=== PATIENT | male | born 1965 | race Caucasian/White ===

== ENCOUNTER 2022-03-27 11:02 | Emergency (ER) | payer OTHER, SELFPAY ==
[2022-03-27] VITALS (11 sets, daily range): BP systolic 130–162; BP diastolic 88–102; PULSE 84–127; RESP 18–20; TEMP 36.4–36.9; O2SAT 97–100
--- NOTE | ~2022-03-27 | CT_ITS ---
EXAMINATION: CT abdomen pelvis wo con DATE: 03/27/2022 12:22 INDICATION: Left flank pain. History of kidney stones. TECHNIQUE: Computed tomography (CT) of the abdomen and pelvis was performed without intravenous contr ast. Automated exposure control and iterative reconstruction technique were employed. Exam dose: 172 .38 mGy-cm total exam DLP. COMPARISON: 03/27/2022 portable AP chest FINDINGS: Calcified right lower lobe pulmonary granulomas. The included lung bases are clear of infil trate or consolidation. Normal heart size. No pericardial or pleural effusion. Approximately 1.5 cm lateral segment left hepatic cyst. The liver is otherwise unremarkable. The gall bladder is present. No gallbladder wall thickening or pericholecystic fluid or fat stranding is noted . No bile duct or pancreatic duct dilatation. No pancreatic mass lesion or calcification. Normal sple jacquie size. Normal morphology of the adrenal glands. Several left renal cysts measuring up to 2.9 x 3.6 cm. Mild nonobstructive right nephrolithiasis including one larger stone measuring up to 4.5 mm. 5.8 mm nonobstructing upper pole left renal calculus. No ureteral calculus or hydroureteronephrosis on either side. Probable approximately 1.5 cm posterolateral left urinary bladder diverticulum. Moderate thickening o f the urinary bladder wall. There is prostate enlargement and calcification. Normal caliber of the abdominal aorta. No intraperitoneal or retroperitoneal or pelvic mass lesion or adenopathy or ascites. Diverticulosis of the colon, most prominent in the sigmoid region. No CT evidence of diverticulitis. No bowel obstruction, bowel wall thickening, pneumatosis or intraperitoneal free air. Normal appendix . The tracts of prior intramedullary nail and compression screw of proximal right femur and an old heal ed right femoral intertrochanteric fracture are noted. There is osteosclerosis of the left inferior pubic ramus. Osteosclerotic metastasis is not excluded. Recommend clinical correlation and perhaps are identified bone scan as clinically appropriate. IMPRESSION: Bilateral nonobstructive nephrolithiasis; no ureteral calculus or hydroureteronephrosis Multiple left renal cysts 1.5 cm left hepatic cyst Prostate enlargement and calcification Probable posterolateral left 1.5 cm urinary bladder diverticulum Diverticulosis of the colon Osteosclerosis of left inferior pubic ramus; prostate cancer osteosclerotic metastasis is not exclude d. Recommend clinical correlation and perhaps radionuclide bone scan as clinically appropriate Reviewed, dictated and finalized at [facility] Reviewed, dictated and finalized at [facility] IMPRESSION: Bilateral nonobstructive nephrolithiasis; no ureteral calculus or hydroureteronephrosis Multiple left renal cysts 1.5 cm left hepatic cyst Prostate enlargement and calcification Probable posterolateral left 1.5 cm urinary bladder diverticulum Diverticulosis of the colon Osteosclerosis of left inferior pubic ramus; prostate cancer osteosclerotic met astasis is not excluded. Recommend clinical correlation and perhaps radionuclid e bone scan as clinically appropriate
--- NOTE | ~2022-03-27 | XR_ITS ---
EXAMINATION: XR chest 1V portable INDICATION: Chest pain TECHNIQUE: Portable AP chest at 1226 hours COMPARISON: None available FINDINGS: There is symmetric scarring of the lung apices. The lungs are free of acute opacities. No p leural effusion or pneumothorax. The cardiomediastinal silhouette is normal. IMPRESSION: 1. No acute cardiopulmonary abnormality. Reviewed, dictated and finalized at [facility] [employer]
--- NOTE | 2022-03-27 11:54 | ECG_ITS ---
Measurements Intervals [place] Rate: 87 P: 84 [place]: 112 QRS: 73 QRSD: 77 T: 78 QT: 332 QTc: 401 Interpretive Statements SINUS RHYTHM WITH SHORT [place] INTERVAL ABNORMAL ECG NO PREVIOUS ECG AVAILABLE FOR COMPARISON Electronically Signed On 03-27-2022 15:10:03 QUALITY CONTROL TECH by Bubba Marmolejo M.D.
[2022-03-27 12:08] LABS: Hematocrit 49.7 % (40.0-54.0); Hemoglobin 17.2 g/dL (14.0-18.0); Mean Corpuscular HGB Conc 34.6 g/dL (32.0-36.0); Mean Corpuscular Hemoglobin 31.3 pg (27.0-31.0); Mean Corpuscular Volume 90.4 fL (78.0-102.0); Mean Platelet Volume 9.3 fl (8.7-11.0); Platelet Count Result 160 K/mm3 (150-420); Red Cell Distribution Width 12.2 % (11.6-14.4); White Blood Count 3.9 K/mm3 (4.8-10.8)
[2022-03-27 12:10] LABS: Appearance Urine Clear (Clear); Bilirubin Urine Negative (Negative); Blood Urine Negative (Negative); Glucose Urine UA Negative (Negative); Ketones Urine Negative (Negative); Leukocyte Esterase Ur Negative (Negative); Nitrate Urine Negative (Negative); Protein Urine Negative (Negative); Specific Grav Ur 1.015 (1.010-1.020); Urobilinogen Urine 0.2 mg/dL (0.2-1.0); pH Urine 6.5 (5.0-8.0)
[2022-03-27 12:26] LABS: Alanine Aminotransferase 34 U/L (16-63); Albumin Level 3.7 g/dL (3.4-5.0); Alkaline Phosphatase 72 U/L (46-116); Anion Gap 8 mmol/L (8-16); Aspartate Amino Transferase 36 U/L (15-37); Bilirubin,Total 0.4 mg/dL (0.00-1.00); Blood Urea Nitrogen 13 mg/dL (7-18); Calcium 8.7 mg/dL (8.5-10.1); Carbon Dioxide 28 mmol/L (21-32); Chloride 105 mmol/L (98-108); Estimated CRCL calculation 54 ml/min; Estimated Glomerular Filt Rate > 60; Ethanol < 3 mg/dL (0-6); Glucose 100 mg/dL (70-99); Osmolality Calculated 292 mOsm/kg (285-295); Potassium 4.6 mmol/L (3.5-5.1); Sodium 141 mmol/L (136-145); Total Protein 7.2 g/dL (6.4-8.2); Troponin I 7.1 ng/L (0.00-60.4)
[2022-03-27 12:31] LABS: Amphetamine Screen Urine Negative (Negative); Barbiturate Screen Urine Negative (Negative); Benzodiazepines Screen Urine Negative (Negative); Cannabinoid Screen Urine Negative (Negative); Cocaine Screen Urine Negative (Negative); Methadone Screen Urine Negative (Negative); Opiate Screen Urine Negative (Negative); Phencyclidine Screen Urine Negative (Negative)
[2022-03-27] MEDS: SODIUM CHLORIDE 0.9% IV 1,000 ML 999 ML IV CONT (12:33)
[2022-03-27] MEDS: ONDANSETRON INJ 4 MG/2 ML VIAL IV PUSH (12:33)
[2022-03-27] MEDS: PANTOPRAZOLE SODIUM IV 40 MG VIAL IV PUSH (12:33)
[2022-03-27 12:35] LABS: Add Urine Microscopic? NO; Color Urine Light Yellow (Yellow)
[2022-03-27 12:43] LABS: Influenza A QL RT-PCR Negative (Negative); Influenza B QL RT-PCR Negative (Negative); SARS-CoV-2 RNA PCR Positive (Negative)
[2022-03-27 12:46] LABS: RSV RNA, RT-PCR Negative (Negative)
[2022-03-27 12:54] LABS: Band Neutrophils Percent 4 % (0-6); Lymphocytes Absolute Manual 1.09 K/mm3 (1.1-4.5); Lymphocytes Percent Manual 28 % (18-44); Monocytes Absolute Manual 0.23 K/mm3 (0.1-0.90); Monocytes Percent Manual 6 % (3-9); Neutrophils Absolute Manual 2.57 K/mm3 (1.3-6.7); Neutrophils Percent Manual 62 % (46-73); Platelet Estimate Adequate (Adequate); Total Cells Counted 10
--- NOTE | 2022-03-27 13:55 | PC.NURSE ---
pt given a strainer to strain urine. voiced understanding
--- NOTE | 2022-03-27 14:11 | ED.ABDPAIN ---
HPI - Abdominal Pain General Chief Complaint: Urogenital-Male Stated Complaint: POSSIBLE KIDNEY STONE Time Seen by Provider: 03/27/22 11:04 Source: patient and RN notes reviewed Mode of arrival: ambulatory History of Present Illness MD elicited complaint: flank pain Onset (ago): day(s) (1) Pain Consistency: constant Location: L flank Severity: moderate Pain scale (0-10): 6 Quality: aching Migration to: no migration Exacerbating factors: nothing Relieving factors: nothing Associated symptoms: nausea Related Data Allergies Allergy/AdvReac Type Severity Reaction Status Date / Time No Known Allergies Allergy Verified 03/27/22 11:57 Review of Systems Review of Systems: All systems reviewed & are unremarkable except as noted in HPI and below Constitutional: Constitutional: Reports no additional constitutional complaints Eyes: Eyes: Reports no additional eye complaints ENT: Reports system reviewed and no additional complaints, except as documented Cardiovascular: Cardiovascular: Reports no additional cardiovascular complaints Respiratory: Respiratory: Reports no additional respiratory complaints Gastrointestinal: Gastrointestinal: Reports no additional gastrointestinal complaints Musculoskeletal: Musculoskeletal: Reports no additional musculoskeletal complaints Integumentary/Breasts: Skin/Breast: Reports system reviewed and no additional complaints, except as docu Neurologic: Reports system reviewed and no additional complaints, except as documented Psychiatric: Psychiatric: Reports no additional psychiatric complaints Endocrine: Endocrine: Reports no additional endocrine complaints Hematologic/Lymphatic: Hematologic/Lymphatic: Reports no additional hematologic/lymphatic complaints Allergic/Immunologic: Allergic/Immunologic: Reports no additional allergic/immunologic complaints PMFSH Past Medical History Medical History Kidney calculi Exam Const: General: no acute distress and well nourished Nutritional Appearance: well nourished Orientation/consciousness: patient oriented x3 Limitations: no limitations Other: mild left flank tenderness HENMT: Head: normal to inspection Ears: external ears normal, TM's normal bilaterally and EAC's normal Face/Nose/Sinus: Normal external nose present, Normal nares present, normal facial exam and sinuses nontender Face and sinus: normal facial exam and sinuses nontender Mouth: Yes Normal oral and palatal mucosa present and Yes moist mucous membranes Teeth and gingiva: dentition normal Throat: posterior oropharynx normal Eyes: Conjunctivae: conjunctivae normal Pupils: Equal, round and reactive pupils present EOM: EOMs intact bilaterally Neck: Neck: normal visual inspection, no lymphadenopathy and no meningeal signs Chest: Chest palpation & inspection: normal inspection of the chest Resp: Effort & Inspection: normal respiratory effort Auscultation: clear to auscultation bilaterally Cardio: Rate: regular rate Rhythm: regular rhythm GI: GI Palp: Yes Soft to palpation and No Tenderness to palpation present (GI) Auscultation: normal bowel sounds : General: Yes bladder normal to palpation and Yes no CVA tenderness Back/Spine/Pelvis: Back: no CVA tenderness Skin: General skin exam: normal color Rashes: no rashes Wounds: no wounds Neuro: General: patient oriented x3, moves all extremities, no meningeal signs, no focal motor deficits and CN's II-XI intact bilaterally Cranial nerves: Yes Equal, round and reactive pupils present and Yes Nystagmus not present Speech: normal speech Gait exam (Neuro): Normal gait present Extrem: General: normal to inspection and no pedal edema Psych: Mental Status: mental status grossly normal Affect: normal affect Attitude: cooperative Course Course Emergency Course: stable, less painful Reevaluation(s) Reevaluation #1: VSS Date: 03/27/22 Time: 12:01 Vital
== END 2022-03-27 14:24 | disposition home or self-care (01) ==
PROVIDERS: Emergency Provider Emergency Medicine
DX: U07.1 COVID-19 (principal); N20.0 Calculus of kidney
CPT/HCPCS: 36415; 71045; 74176; 80053; 80307; 81003; 83605; 84484; 85025; 87637; 93005; 96361; 96374; 96375; 99284; C9113; J2405; J7030